=== PATIENT | female | born 1930 | race Caucasian/White ===

== ENCOUNTER 2017-05-22 10:37 | Outpatient (CLI) | payer MEDICARE, BC ==
[~2017-05-22 10:37] MED LIST: ASPI-611 PO; BACDS PO; CALC-336 PO; CHOL2000 PO; CYAN-19 PO; DULO30CA51 PO; FLUT16SP2 BOTHNARES; GLUC1CAP33 PO; LEVO75TA7 PO; LISI-600 PO; LOVA40TA2 PO; MULT1TAB74 PO
== END 2017-05-22 11:45 | disposition home or self-care (01) ==
LOC: ORTHO 10:37
PROVIDERS: ATTEND Nurse Practitioner Family
DX: S42.212A Unspecified displaced fracture of surgical neck of left humerus, initial encounter for closed fracture (principal); Z79.02 Long term (current) use of antithrombotics/antiplatelets; X58.XXXA Exposure to other specified factors, initial encounter; Y93.01 Activity, walking, marching and hiking; Y92.89 Other specified places as the place of occurrence of the external cause; Y99.8 Other external cause status
CPT/HCPCS: 99213

== ENCOUNTER 2017-06-12 10:12 | Outpatient (CLI) | payer MEDICARE, BC ==
[2017-06-12 10:07] VITALS: BP 119/73
== END 2017-06-12 11:15 | disposition home or self-care (01) ==
LOC: ORTHO 10:12
PROVIDERS: ATTEND Nurse Practitioner Family
DX: S42.212D Unspecified displaced fracture of surgical neck of left humerus, subsequent encounter for fracture with routine healing (principal); W00.2XXD Other fall from one level to another due to ice and snow, subsequent encounter
CPT/HCPCS: 73060; 99213

== ENCOUNTER 2017-07-10 10:58 | Outpatient (CLI) | payer MEDICARE, BC ==
[2017-07-10 10:59] VITALS: BP 119/69
== END 2017-07-10 12:35 | disposition home or self-care (01) ==
LOC: ORTHO 10:58
PROVIDERS: ATTEND Nurse Practitioner Family
DX: S42.212D Unspecified displaced fracture of surgical neck of left humerus, subsequent encounter for fracture with routine healing (principal); S50.02XD Contusion of left elbow, subsequent encounter; E05.90 Thyrotoxicosis, unspecified without thyrotoxic crisis or storm; F32.9 Major depressive disorder, single episode, unspecified; I10 Essential (primary) hypertension; J45.909 Unspecified asthma, uncomplicated; M81.0 Age-related osteoporosis without current pathological fracture; Z86.73 Personal history of transient ischemic attack (TIA), and cerebral infarction without residual deficits; X58.XXXD Exposure to other specified factors, subsequent encounter; Y93.01 Activity, walking, marching and hiking
CPT/HCPCS: 73060; 73080; 99213

== ENCOUNTER 2018-12-13 10:27 | Emergency (ER) | payer MEDICARE, BC ==
[~2018-12-13] VITALS: Ht 157.5 cm; Wt 60.0 kg
[~2018-12-13 10:27] MED LIST changes: -CYAN-19 PO; +CYAN-51 PO; -DULO30CA51 PO; +DULO30CA52 PO
[2018-12-13] MEDS ORDERED: acetaminophen 325mg tablet PO ONE (10:50)
--- NOTE | 2018-12-13 10:56 | NUR ---
Per Pt, Pt fell 4 days ago. Changed to LVL 3 Trauma until imaging returned per MD.
--- NOTE | 2018-12-13 11:05 | NUR ---
Break RN, medicated patient for pain and placed on monitor. No needs at this time.
[2018-12-13 11:35] VITALS: BP 97/56
[2018-12-13] MEDS ORDERED: LIDO700A32 TOP (11:42)
== END 2018-12-13 11:51 | disposition home or self-care (01) ==
LOC: ER 10:28
DX: R07.81 Pleurodynia (principal); R07.2 Precordial pain; E78.00 Pure hypercholesterolemia, unspecified; I10 Essential (primary) hypertension; Z79.899 Other long term (current) drug therapy; Z79.2 Long term (current) use of antibiotics; Z79.82 Long term (current) use of aspirin; Z86.73 Personal history of transient ischemic attack (TIA), and cerebral infarction without residual deficits; W01.198A Fall on same level from slipping, tripping and stumbling with subsequent striking against other object, initial encounter; Y93.01 Activity, walking, marching and hiking; Y92.096 Garden or yard of other non-institutional residence as the place of occurrence of the external cause; Y99.8 Other external cause status
CPT/HCPCS: 71046; 99283

== ENCOUNTER 2019-01-13 12:14 | Emergency (ER) | payer MEDICARE, BC ==
[~2019-01-13] VITALS: Ht 157.5 cm; Wt 57.6 kg
[~2019-01-13 12:14] MED LIST changes: +LIDO700A32 TOP
[2019-01-13 13:07] LABS: BASOPHILS % (AUTO) 0.5 % (0-1); EOSINOPHILS # (AUTO) 0.1 X10'3 (0-0.9); EOSINOPHILS % (AUTO) 1.4 % (0-6); HEMATOCRIT 40.9 % (35.0-45.0); LYMPHOCYTES # (AUTO) 1.1 X10'3 (1.1-4.8); LYMPHOCYTES % (AUTO) 12.9 % (21-51); MEAN CORPUSCULAR HEMOGLOBIN 33.8 PG (27.0-31.0); MEAN CORPUSCULAR HGB CONC 34.2 g/dL (33.0-36.5); MEAN CORPUSCULAR VOLUME 98.6 FL (78-98); MONOCYTES # (AUTO) 0.6 X10'3 (0-0.9); MONOCYTES % (AUTO) 6.8 % (2-12); NEUTROPHILS # (AUTO) 6.8 X10'3 (1.8-7.7); NEUTROPHILS % (AUTO) 78.4 % (42-75); PLATELET COUNT 279 X10'3 (140-440); RED BLOOD COUNT 4.15 X10'6 (4.20-5.60); RED CELL DISTRIBUTION WIDTH 14.2 % (11.5-14.5); WHITE BLOOD COUNT 8.6 X10'3 (4.5-11.0)
[2019-01-13 13:21] LABS: ALANINE AMINOTRANSFERASE 25 U/L (12-78); ALBUMIN 3.8 G/DL (3.4-5.0); ALBUMIN/GLOBULIN RATIO 1.1 (1.1-1.5); ALKALINE PHOSPHATASE 93 IU/L (46-116); ANION GAP 7 (8-16); ASPARTATE AMINO TRANSFERASE 29 U/L (10-37); BLOOD UREA NITROGEN 30 MG/DL (7-18); BUN/CREATININE RATIO 25.4 (6.6-38.0); CALCIUM 8.9 MG/DL (8.5-10.1); CHLORIDE 107 MMOL/L (99-107); CREATININE 1.18 MG/DL (0.40-0.90); GLUCOSE 91 MG/DL (70-104); POTASSIUM 4.3 MMOL/L (3.5-5.1); SODIUM 140 MMOL/L (135-145); TOTAL CARBON DIOXIDE 26.5 MMOL/L (24-32); TOTAL PROTEIN 7.4 G/DL (6.4-8.2); eGFR 43 ML/MIN
[2019-01-13 13:24] LABS: TROPONIN I < 0.04 NG/ML (0.0-0.05)
[2019-01-13 13:36] LABS: PARTIAL THROMBOPLASTIN TIME 29 SECONDS (22-32)
[2019-01-13 14:08] LABS: CLARITY,URINE CLEAR (Clear); COLOR,URINE YELLOW (Yellow); GLUCOSE, URINE NEGATIVE (Neg); KETONES,URINE NEGATIVE (Neg); LEUKOCYTE ESTERASE ,URINE NEGATIVE (Neg); NITRITES, URINE NEGATIVE (Neg); OCCULT BLOOD,URINE NEGATIVE (Neg); PH,URINE 5.5 (4.8-8.0); PROTEIN,URINE NEGATIVE (Neg); UROBILINOGEN,URINE 0.2 E.U/dL (0.2-1.0)
[2019-01-13 14:15] LABS: UA COLLECTION TYPE CLN CATCH MIDSTREAM
[2019-01-13 14:54] VITALS: BP 147/73
== END 2019-01-13 15:34 | disposition home or self-care (01) ==
LOC: ER 12:15
DX: R42 Dizziness and giddiness (principal); R41.0 Disorientation, unspecified; E78.00 Pure hypercholesterolemia, unspecified; I10 Essential (primary) hypertension; R79.1 Abnormal coagulation profile; Z86.73 Personal history of transient ischemic attack (TIA), and cerebral infarction without residual deficits; Z98.890 Other specified postprocedural states; Z79.82 Long term (current) use of aspirin; Z79.899 Other long term (current) drug therapy
CPT/HCPCS: 36415; 70450; 71045; 80053; 81003; 84439; 84443; 84484; 85025; 85610; 85730; 99284